=== PATIENT | female | born 1995 | race Caucasian/White ===

== ENCOUNTER 2017-03-17 13:44 | Observation (INO) | payer MEDICAID ==
[~2017-03-17] VITALS: Ht 179.1 cm; Wt 176.9 kg
[2017-03-17 16:30] LABS: HIV 1&2 ANTIBODY SCREEN Nonreactive (Nonreactive); HIV-1 p24 ANTIGEN Nonreactive (Nonreactive)
[2017-03-17 16:43] LABS: DAU SCREEN DISCLAIMER
[2017-03-17 18:53] LABS: ASPARTATE AMINO TRANSFERASE 13 U/L (15-37); BLOOD UREA NITROGEN 3 mg/dL (7-18)
== END 2017-03-17 19:25 | disposition home or self-care (01) ==
LOC: LDOP 13:44 → LDIP 16:15
PROVIDERS: ADMIT Student in an Organized Health Care Education/Training Program; ATTEND Student in an Organized Health Care Education/Training Program
DX: O26.893 Other specified pregnancy related conditions, third trimester (principal); R10.9 Unspecified abdominal pain; O24.313 Unspecified pre-existing diabetes mellitus in pregnancy, third trimester; O10.913 Unspecified pre-existing hypertension complicating pregnancy, third trimester; O99.213 Obesity complicating pregnancy, third trimester; E66.01 Morbid (severe) obesity due to excess calories; O98.813 Other maternal infectious and parasitic diseases complicating pregnancy, third trimester; B95.1 Streptococcus, group B, as the cause of diseases classified elsewhere; Z68.43 Body mass index [BMI] 50.0-59.9, adult; Z3A.35 35 weeks gestation of pregnancy
CPT/HCPCS: 36415; 59025; 76815; 80053; 80307; 81001; 82248; 82570; 82962; 83036; 84156; 84550; 85027; 86592; 86703; 86762; 86850; 86900; 87081; 87086; 87147; 87340; 87899; G0378; G0435

== ENCOUNTER 2017-04-01 12:04 | Emergency (ER) | payer MEDICAID ==
[~2017-04-01] VITALS: Ht 177.8 cm; Wt 179.7 kg
[~2017-04-01 12:04] MED LIST: ENOX40SY4 SQ; OXYC-302 PO
[2017-04-01] MEDS ORDERED: SODIUM CHLORIDE FLUSH 10ML SYR IVF ONE (13:00)
[2017-04-01] MEDS ORDERED: MORPHINE SULFATE 4 MG/ML, 1ML IVPush PRN (13:00)
[2017-04-01] MEDS ORDERED: SODIUM CHLORIDE 0.9% 1,000ML IVBOLUS ONE (13:00)
[2017-04-01] MEDS ORDERED: ONDANSETRON 2MG/ML, 2ML IVPush ONE (13:00)
[2017-04-01 13:23] LABS: ASPARTATE AMINO TRANSFERASE 16 U/L (15-37); BLOOD UREA NITROGEN 9 mg/dL (7-18)
[2017-04-01] MEDS ORDERED: MORPHINE SULFATE 4 MG/ML, 1ML ONE (14:47)
[2017-04-01] MEDS ORDERED: ONDANSETRON 2MG/ML, 2ML ONE (14:47)
[2017-04-01 16:53] LABS: PATH.CAST-FLAG NOT PRESENT; SPERM-FLAG NOT PRESENT; SRC-FLAG NOT PRESENT; XTAL-FLAG NOT PRESENT; YLC-FLAG NOT PRESENT
[2017-04-01 17:55] VITALS: BP 180/95
== END 2017-04-01 17:58 | disposition home or self-care (01) ==
LOC: ED 16:16
DX: R10.84 Generalized abdominal pain (principal); R11.0 Nausea; E11.9 Type 2 diabetes mellitus without complications; Z88.6 Allergy status to analgesic agent
CPT/HCPCS: 36415; 76830; 80053; 81001; 83690; 85025; 96361; 96374; 96375; 99285; J2405; J7030

== ENCOUNTER 2018-12-19 13:22 | Emergency (ER) | payer OTHER, MEDICAID ==
[~2018-12-19] VITALS: Ht 177.8 cm; Wt 154.5 kg
--- NOTE | 2018-12-19 14:02 | NUR ---
Pt brought in by EMS and in custody with c/o abdominal pain without n/v/d or trauma for "a couple of weeks". Pt states, "I think I am about four months ." NADN. Pt connected to NIBP and continous pulse ox. Call light within reach. Pt aware of need or urine sample. Pt stating, "I can't pee right now, I don't need to." All safety measures in place. Call light within reach.
[2018-12-19 14:16] LABS: BASOPHILS # (AUTO) 0.03 x10^3/uL (0-0.1); BASOPHILS % (AUTO) 0 % (0-1); EOSINOPHILS # (AUTO) 0.02 x10^3/uL (0-0.4); EOSINOPHILS % (AUTO) 0 % (1-7); LYMPHOCYTES # (AUTO) 1.88 x10^3/uL (1-3.4); LYMPHOCYTES % (AUTO) 25 % (22-44); MD NO; MEAN CORPUSCULAR HGB CONC 32.7 g/dL (32.4-35.8); MEAN CORPUSCULAR VOLUME 79.5 fL (80-100); MEAN PLATELET VOLUME 8.4 fL (7.4-10.4); MONOCYTES % (AUTO) 8 % (2-9); NEUTROPHILS # (AUTO) 5.06 x10^3/uL (1.8-6.8); NEUTROPHILS % (AUTO) 67 % (42-75); PLATELET COUNT 333 x10^3/uL (130-400); RED BLOOD COUNT 4.37 x10^6/uL (3.82-5.3); RED CELL DISTRIBUTION WIDTH 19.8 % (9.6-15.2)
[2018-12-19 14:19] LABS: ANION GAP 7 mmol/L (5-15); CALCIUM 8.6 mg/dL (8.5-10.1); CHLORIDE 107 mmol/L (98-107)
[2018-12-19 14:22] LABS: ALANINE AMINOTRANSFERASE 20 U/L (12-78); ALKALINE PHOSPHATASE 58 U/L (45-117); BILIRUBIN,TOTAL 0.4 mg/dL (0.2-1.0); TOTAL PROTEIN 7.5 g/dL (6.4-8.2)
[2018-12-19 15:41] LABS: MICROSCOPIC INDICATED
--- NOTE | 2018-12-19 15:44 | NUR ---
Provided pt crackers, water, and string cheese per pt request for food. Pt appreciative. ED aware.
[2018-12-19 15:45] LABS: CULTURE INDICATED? NO
--- NOTE | 2018-12-19 16:10 | NUR ---
Patient given discharge instructions and they have confirmed that they understand the instructions. Patient ambulatory with steady gait. Pt left in custody with [facility]. Addendum: 12/19/18 at 1611 by [facility] Pt left with perscription, discharge paperwork, and all personal belongings.
[2018-12-19 16:11] VITALS: BP 147/80
== END 2018-12-19 16:15 | disposition home or self-care (01) ==
LOC: ED 13:51
DX: O16.2 Unspecified maternal hypertension, second trimester (principal); O24.912 Unspecified diabetes mellitus in pregnancy, second trimester; R10.30 Lower abdominal pain, unspecified; Z3A.18 18 weeks gestation of pregnancy
CPT/HCPCS: 36415; 76815; 80053; 81001; 85025; 99284

== ENCOUNTER 2019-01-19 19:40 | Outpatient (CLI) | payer OTHER, MEDICAID ==
[~2019-01-19] VITALS: Ht 177.8 cm; Wt 168.0 kg
== END 2019-01-19 20:30 | disposition home or self-care (01) ==
LOC: LDOP 19:40
PROVIDERS: ATTEND Obstetrics & Gynecology
DX: O26.892 Other specified pregnancy related conditions, second trimester (principal); R10.9 Unspecified abdominal pain; Z3A.21 21 weeks gestation of pregnancy
CPT/HCPCS: 59025; 99211; G0463

== ENCOUNTER 2019-02-16 14:24 | Observation (INO) | payer MEDICAID ==
[~2019-02-16] VITALS: Ht 177.8 cm; Wt 147.7 kg
[2019-02-16 14:55] LABS: MICROSCOPIC INDICATED
[2019-02-16 15:05] LABS: AMPHETAMINE SCREEN, URINE Negative (Negative); BARBITURATE SCREEN, URINE Negative (Negative); BENZODIAZEPINE SCREEN, URINE Negative (Negative); CANNABINOID SCREEN, URINE Positive (Negative); COCAINE SCREEN, URINE Negative (Negative); METHADONE SCREEN, URINE Negative (Negative); OPIATE SCREEN, URINE Negative (Negative)
[2019-02-16 16:15] LABS: CLUE CELLS NONE SEEN (NONE SEEN); WET PREP WBCS MODERATE (FEW)
[2019-02-16 16:15] LABS: BASOPHILS # (AUTO) 0.03 x10^3/uL (0-0.1); BASOPHILS % (AUTO) 0 % (0-1); EOSINOPHILS # (AUTO) 0.05 x10^3/uL (0-0.4); EOSINOPHILS % (AUTO) 1 % (1-7); LYMPHOCYTES # (AUTO) 2.08 x10^3/uL (1-3.4); LYMPHOCYTES % (AUTO) 28 % (22-44); MD NO; MEAN CORPUSCULAR HEMOGLOBIN 27.3 pg (27.0-34.8); MEAN CORPUSCULAR VOLUME 82.7 fL (80-100); MEAN PLATELET VOLUME 8.1 fL (7.4-10.4); MONOCYTES # (AUTO) 0.66 x10^3/uL (0.2-0.8); MONOCYTES % (AUTO) 9 % (2-9); NEUTROPHILS # (AUTO) 4.69 x10^3/uL (1.8-6.8); NEUTROPHILS % (AUTO) 62 % (42-75); PLATELET COUNT 329 x10^3/uL (130-400); RED BLOOD COUNT 4.04 x10^6/uL (3.82-5.3); RED CELL DISTRIBUTION WIDTH 17.6 % (9.6-15.2)
[2019-02-16 16:20] LABS: ALBUMIN 2.5 g/dL (3.4-5.0); ANION GAP 9 mmol/L (5-15); CALCIUM 8.7 mg/dL (8.5-10.1); CHLORIDE 107 mmol/L (98-107)
[2019-02-16 16:25] LABS: ALANINE AMINOTRANSFERASE 13 U/L (12-78); ALKALINE PHOSPHATASE 66 U/L (45-117); BILIRUBIN,TOTAL 0.3 mg/dL (0.2-1.0); TOTAL PROTEIN 6.9 g/dL (6.4-8.2)
[2019-02-16] MEDS ORDERED: LABE100T6 PO (17:22)
[2019-02-16] MEDS ORDERED: LABETALOL 100 MG TABLET PO SCH (17:30)
[2019-02-16] MEDS ORDERED: LABETALOL 100 MG TABLET ONE (18:00)
== END 2019-02-16 18:10 | disposition home or self-care (01) ==
LOC: LDOP 14:24 → LDIP 15:50
PROVIDERS: ADMIT Obstetrics & Gynecology; ATTEND Obstetrics & Gynecology
DX: O46.92 Antepartum hemorrhage, unspecified, second trimester (principal); Z3A.25 25 weeks gestation of pregnancy
CPT/HCPCS: 36415; 59025; 76805; 80053; 80307; 81001; 84550; 85025; 86592; 86762; 86850; 86900; 87086; 87147; 87210; 87340; 87491; 87591; 87806; 87808; 99211; G0378; G0463; G0475

== ENCOUNTER → 2020-04-24 | Outpatient (CLI) | payer OTHER ==
[~2020-04-24] MED LIST changes: +LABE100T6 PO
== END | disposition home or self-care (01) ==
LOC: RAD 09:46
PROVIDERS: ATTEND Obstetrics & Gynecology
DX: O09.891 Supervision of other high risk pregnancies, first trimester (principal); N85.4 Malposition of uterus; R10.30 Lower abdominal pain, unspecified; Z3A.08 8 weeks gestation of pregnancy
CPT/HCPCS: 76801

== ENCOUNTER 2020-11-20 11:52 | Inpatient (IN) | payer MEDICAID, OTHER ==
[~2020-11-20] VITALS: Ht 177.8 cm; Wt 154.5 kg
[~2020-11-20 11:52] MED LIST changes: -OXYC-302 PO; +OXYC1TAB14 PO
[2020-11-20] MEDS ORDERED: CALCIUM CHLORIDE 13.6 MEQ/10 ML ONE (12:43)
[2020-11-20] MEDS ORDERED: ONDANSETRON 2MG/ML, 2ML ONE ×2 (12:43→18:47)
[2020-11-20] MEDS ORDERED: EPHEDRINE 50 MG/ML, 1ML ONE ×2 (12:43→18:47)
[2020-11-20] MEDS ORDERED: PHENYLEPHRINE 10 MG/ML ONE ×2 (12:43→18:47)
[2020-11-20 14:39] LABS: AMPHETAMINE SCREEN, URINE Positive (Negative); BARBITURATE SCREEN, URINE Negative (Negative); BENZODIAZEPINE SCREEN, URINE Negative (Negative); CANNABINOID SCREEN, URINE Positive (Negative); COCAINE SCREEN, URINE Negative (Negative); METHADONE SCREEN, URINE Negative (Negative); OPIATE SCREEN, URINE Negative (Negative)
[2020-11-20] MEDS ORDERED: OXYTOCIN 30U/ 0.9% NaCL 500ML 500 ML ONE (15:18)
[2020-11-20] MEDS ORDERED: METOCLOPRAMIDE 5 MG/ML, 2ML ONE (15:18)
[2020-11-20] MEDS ORDERED: NEWBORN KIT ONE (15:18)
[2020-11-20] MEDS ORDERED: SODIUM CITRATE/CITRIC ACID 15 ML UDC ONE (15:19)
[2020-11-20] MEDS ORDERED: AZITHROMYCIN 500 MG in SODIUM CHLORIDE 0.9% 250 ML IV ONE (15:30)
[2020-11-20] MEDS ORDERED: METOCLOPRAMIDE 5 MG/ML, 2ML IV ONE (15:30)
[2020-11-20] MEDS ORDERED: SODIUM CITRATE/CITRIC ACID 30 ML UDC PO ONE (15:30)
[2020-11-20] MEDS ORDERED: LACTATED RINGERS 1,000 ML IVBOLUS ONE (15:30)
[2020-11-20 15:52] LABS: BASOPHILS % (AUTO) 1 % (0-1); EOSINOPHILS % (AUTO) 1 % (1-7); LYMPHOCYTES % (AUTO) 40 % (22-44); MEAN CORPUSCULAR HEMOGLOBIN 27.6 pg (27.0-34.8); MEAN CORPUSCULAR HGB CONC 32.9 g/dL (32.4-35.8); MEAN PLATELET VOLUME 8.2 fL (7.4-10.4); MONOCYTES % (AUTO) 11 % (2-9); NEUTROPHILS % (AUTO) 48 % (42-75); PLATELET COUNT 250 x10^3/uL (130-400); RED BLOOD COUNT 3.76 x10^6/uL (3.82-5.3); RED CELL DISTRIBUTION WIDTH 15.9 % (9.6-15.2)
[2020-11-20 15:57] LABS: MD NO
[2020-11-20 16:02] LABS: ALANINE AMINOTRANSFERASE 15 U/L (12-78); ALBUMIN 2.2 g/dL (3.4-5.0); ANION GAP 6 mmol/L (5-15); CALCIUM 8.4 mg/dL (8.5-10.1); CHLORIDE 110 mmol/L (98-107); CREATININE 0.35 mg/dL (0.55-1.02)
[2020-11-20 16:04] LABS: ALKALINE PHOSPHATASE 96 U/L (45-117); BILIRUBIN,TOTAL 0.2 mg/dL (0.2-1.0); TOTAL PROTEIN 6.1 g/dL (6.4-8.2)
[2020-11-20] MEDS: LACTATED RINGERS 1,000 ML IV SCH ×4 (16:30→23:30)
[2020-11-20] MEDS ORDERED: morphine SULFATE/PF 0.5 MG/ML, 10ML ONE (16:44)
[2020-11-20] MEDS ORDERED: EPINEPHRINE 1 MG/ML, 1ML ONE (17:01)
[2020-11-20] MEDS ORDERED: OXYTOCIN 10 UNITS/ML, 1ML ONE (18:47)
[2020-11-20] MEDS ORDERED: WATER-INJECTION,STERILE 10 ML IV ONE ×2 (18:47)
[2020-11-20] MEDS ORDERED: CEFAZOLIN 1,000 MG ONE ×2 (18:47)
[2020-11-20] MEDS ORDERED: CALCIUM CHLORIDE 10%, 10ML SYR ONE (18:51)
[2020-11-20] MEDS ORDERED: ONDANSETRON 2MG/ML, 2ML IV PRN (19:30)
[2020-11-20] MEDS ORDERED: BISACODYL 10 MG SUPP PR PRN (19:30)
[2020-11-20] MEDS ORDERED: HYDROcodone/APAP 5/325 TABLET PO PRN (19:30)
[2020-11-20] MEDS ORDERED: SIMETHICONE 80 MG CHEW TAB PO PRN (19:30)
[2020-11-20] MEDS ORDERED: MISOPROSTOL 200 MCG TABLET PR PRN (19:30)
[2020-11-20] MEDS: OXYTOCIN 30U/ 0.9% NaCL 500ML 500 ML IV SCH (19:30)
[2020-11-20] MEDS ORDERED: METHYLERGONOVINE 0.2 MG/ML IM PRN (19:30)
[2020-11-20] MEDS ORDERED: DIPH,PERTUSS(ACELL),TET VAC/PF NC IM-VACC PRN (19:30)
[2020-11-20 21:00] VITALS: BP 138/84
[2020-11-21 01:00] VITALS: BP 118/73
[2020-11-21 02:59] LABS: BASOPHILS % (AUTO) 1 % (0-1); EOSINOPHILS % (AUTO) 1 % (1-7); LYMPHOCYTES % (AUTO) 23 % (22-44); MEAN CORPUSCULAR HEMOGLOBIN 27.9 pg (27.0-34.8); MONOCYTES % (AUTO) 9 % (2-9); NEUTROPHILS % (AUTO) 67 % (42-75); PLATELET COUNT 228 x10^3/uL (130-400); RED BLOOD COUNT 3.45 x10^6/uL (3.82-5.3); RED CELL DISTRIBUTION WIDTH 15.8 % (9.6-15.2)
[2020-11-21 03:02] LABS: MD NO
[2020-11-21] MEDS: OXYcodone/APAP 5/325MG TABLET PO PRN ×3 (03:26→20:11)
[2020-11-21] MEDS: IBUPROFEN 800 MG TABLET PO PRN ×3 (03:26→22:44)
[2020-11-21] MEDS: LACTATED RINGERS 1,000 ML IV SCH ×2 (03:30→05:30)
[2020-11-21 05:00] VITALS: BP 117/72
[2020-11-21] MEDS: OXYTOCIN 30U/ 0.9% NaCL 500ML 500 ML IV SCH (05:30)
[2020-11-21 07:25] VITALS: BP 118/68
[2020-11-21] MEDS: PRENATAL VIT/IRON/FA 1 EACH TABLET PO SCH (09:00)
[2020-11-21 12:00] VITALS: BP 118/76
[2020-11-21] MEDS: DOCUSATE 100 MG CAPSULE PO PRN ×2 (12:49→20:10)
[2020-11-21] MEDS ORDERED: IBUP-1222 PO (14:26)
[2020-11-21 16:00] VITALS: BP 108/54
[2020-11-21 19:45] VITALS: BP 125/75
[2020-11-22] MEDS: OXYcodone/APAP 5/325MG TABLET PO PRN (05:28)
[2020-11-22 08:45] VITALS: BP 136/76
[2020-11-22] MEDS: PRENATAL VIT/IRON/FA 1 EACH TABLET PO SCH (08:49)
[2020-11-22] MEDS: IBUPROFEN 800 MG TABLET PO PRN (08:49)
[2020-11-22] MEDS: DOCUSATE 100 MG CAPSULE PO PRN (08:49)
== END 2020-11-22 13:10 | disposition home or self-care (01) | DRG 787 ==
LOC: LDOP 11:52 → LDIP 15:30 → 2NW 20:17
PROVIDERS: ADMIT Obstetrics & Gynecology; ATTEND Obstetrics & Gynecology
PROC: 10D00Z1 Extraction of Products of Conception, Low, Open Approach (ICD-10-PCS; principal; 2020-11-20)
DX: O34.211 Maternal care for low transverse scar from previous cesarean delivery (principal); O99.324 Drug use complicating childbirth; O16.4 Unspecified maternal hypertension, complicating childbirth; O24.92 Unspecified diabetes mellitus in childbirth; O69.81X0 Labor and delivery complicated by cord around neck, without compression, not applicable or unspecified; O77.0 Labor and delivery complicated by meconium in amniotic fluid; Z20.822 Contact with and (suspected) exposure to COVID-19; F15.10 Other stimulant abuse, uncomplicated; Z37.0 Single live birth; Z3A.38 38 weeks gestation of pregnancy; Z82.49 Family history of ischemic heart disease and other diseases of the circulatory system; Z82.5 Family history of asthma and other chronic lower respiratory diseases; Z83.3 Family history of diabetes mellitus
CPT/HCPCS: 36415; 76805; 80053; 80307; 82962; 84112; 85025; 86592; 86762; 86803; 86850; 86900; 87340; 87635; 87806; G0378; J0171; J0456; J0690; J2274; J2405; G0475; J2370; J2590; J2765; J7050; J7120